=== PATIENT | male | born 1985 | race American Indian/Alaskan Native ===

== ENCOUNTER 2018-07-29 18:45 | Emergency (ER) | payer SELFPAY ==
--- NOTE | 2018-07-29 19:10 | Emergency Department Report ---
Blank Doc - Documentation Documentation: C/O nasal congestion, cough, sinus pressure since this morning. This initial assessment diagnostic orders/clinical plan/treatment (s) is/Are subject change based on patient's health status, clinical progression and re- assessment by fellow clinical providers in the ED. Further treatment and work-up at subsequent clinical providers discretion. Patient/guardians urged not to elope from their condition may be serious if not clinically assessed and managed. Initial order include:
[2018-07-29 19:12] VITALS: BP 147/66
--- NOTE | 2018-07-30 00:28 | Emergency Department Report ---
- General Chief Complaint: Upper Respiratory Infection Stated Complaint: CHEST PAIN/FATIGUE/BRONCHITIS FLARE UP Time Seen by Provider: 07/29/18 20:39 Source: patient Mode of arrival: Ambulatory Limitations: No Limitations - History of Present Illness Initial Comments: 32-year-old male to emergency Department complaining one half month history of cough, and chest congestion with mucous production. This is since began to progress to bilateral sinus pressure with nasal discharge as well, which is associated with dull headache. MD Complaint: cough, rhinorrhea, nasal congestion -: Gradual Quality: dull Consistency: constant Worsens With: nothing Associated Symptoms: rhinorrhea, nasal congestion, cough. denies: chills, myalgias, diaphoresis, shortness of breath, abdominal pain, nausea, vomiting, confusion, right sweats, weight loss, epistaxis, hoarseness, ear pain - Related Data Previous Rx's Medication Instructions Recorded Last Taken Type Amoxicillin/Potassium Clav 1 each PO BID #20 tablet 07/30/18 Unknown Rx [Augmentin 875-125 Tablet] Benzonatate [Tessalon Perle] 100 mg PO BID #20 capsule 07/30/18 Unknown Rx Ketorolac [Toradol] 10 mg PO Q6H PRN #15 tablet 07/30/18 Unknown Rx Allergies Allergy/AdvReac Type Severity Reaction Status Date / Time No Known Allergies Allergy Verified 07/29/18 18:48 ED Review of Systems ROS: Stated complaint: CHEST PAIN/FATIGUE/BRONCHITIS FLARE UP Other details as noted in HPI Constitutional: denies: chills, fever Eyes: denies: eye pain, eye discharge, vision change ENT: denies: ear pain, throat pain Respiratory: cough. denies: shortness of breath, wheezing Cardiovascular: denies: chest pain, palpitations Endocrine: no symptoms reported Gastrointestinal: denies: abdominal pain, nausea, diarrhea Genitourinary: denies: urgency, dysuria Musculoskeletal: denies: back pain, joint swelling, arthralgia Skin: denies: rash, lesions Neurological: denies: headache, weakness, paresthesias Psychiatric: denies: anxiety, depression Hematological/Lymphatic: denies: easy bleeding, easy bruising ED Past Medical Hx - Past Medical History Previous Medical History?: No - Surgical History Past Surgical History?: Yes Additional Surgical History: Left foot - Social History Smoking Status: Current Every Day Smoker Substance Use Type: None - Medications Home Medications: Home Medications Medication Instructions Recorded Confirmed Last Taken Type Amoxicillin/Potassium Clav 1 each PO BID #20 tablet 07/30/18 Unknown Rx [Augmentin 875-125 Tablet] Benzonatate [Tessalon Perle] 100 mg PO BID #20 capsule 07/30/18 Unknown Rx Ketorolac [Toradol] 10 mg PO Q6H PRN #15 tablet 07/30/18 Unknown Rx ED Physical Exam - General Limitations: No Limitations General appearance: alert, in no apparent distress - Head Head exam: Present: atraumatic, normocephalic - Eye Eye exam: Present: normal appearance, PERRL, EOMI - ENT ENT exam: Present: normal exam, mucous membranes moist, other (bilateral nasal congestion with clear drainage to the posterior pharynx. Some swelling to the left nares more so than to the right. The nasal mucosa is red, erythematous, slightly boggy with this. Frontal and maxillary sinus tenderness to percussion.) - Neck Neck exam: Present: normal inspection, full ROM - Respiratory Respiratory exam: Present: normal lung sounds bilaterally. Absent: respiratory distress - Cardiovascular Cardiovascular Exam: Present: regular rate, normal rhythm. Absent: systolic murmur, diastolic murmur, rubs, gallop - GI/Abdominal GI/Abdominal exam: Present: soft, normal bowel sounds - Rectal Rectal exam: Present: deferred - Extremities Exam Extremities exam: Present: normal inspection - Back Exam Back exam: Present: normal inspection - Neurological Exam Neurological exam: Present: alert, oriented X3 - Psychiatric Psychiatric exam: Present: normal affect, normal mood - Skin Skin exam: Present: warm, dry, intact, normal color. Absent: rash ED Course Vital Signs 07/29/18 19:10 Temperature 98.4 F Pulse Rate 75 Respiratory 16 Rate Blood Pressure 147/66 O2 Sat by Pulse 99 Oximetry Critical care attestation.: If time is entered above; I have spent that time in minutes in the direct care of this critically ill patient, excluding procedure time. ED Disposition Clinical Impression: Cough, Sinusitis Disposition: - TO HOME OR SELFCARE Is pt being admited?: No Does the pt Need Aspirin: No Condition: Stable Instructions: Acute Bacterial Rhinosinusitis (ED), Cold Symptoms (ED), Dextromethorphan (By mouth), Acute Cough (ED) Referrals: [facility], [place] [Primary Care Provider] - 3-5 Days
--- NOTE | 2018-07-30 19:27 | XRay Report ---
PROCEDURE: XR CHEST ROUTINE 2V HISTORY: cough FINDINGS: Frontal and lateral views the chest were acquired. The heart is normal in size. The lungs a ppear hyperinflated but clear. The pulmonary vasculature is within normal limits. IMPRESSION: Hyperinflation No consolidated pulmonary infiltrate This document is electronically signed by Mark Massey MD., July 29 2018 09:38:36 PM ET
== END 2018-07-30 00:30 | disposition home or self-care (01) ==
LOC: ED 18:45
DX: J32.9 Chronic sinusitis, unspecified (principal); F17.200 Nicotine dependence, unspecified, uncomplicated
CPT/HCPCS: 71046; 99282